=== PATIENT | female | born 1985 | race Two or more races ===

== ENCOUNTER → 2017-02-16 | Outpatient (CLI) | payer BC ==
--- NOTE | 2017-02-22 16:36 | SLEEP ---
DATE OF STUDY: 02/16/2017 ATTENDING PHYSICIAN: Lita Wheat MD The patient is 31 years old who has a BMI of 45.9. The patient underwent home sleep study to rule out ANJU. The patient's [place] score was 14. The total recording time was 490 minutes. During the night study, the patient had 2 central apneas, 25 obstructive apneas and 4 mixed apneas. The patient had 67 hypopneas. The patient's apnea hypopnea index was 12 per hour, supine index of 10.5 per hour. Review of nocturnal oximetry study revealed an average oxygen saturation 91%, with the lowest of 76%. 84 minutes were spent in oxygen saturation less than 90%. Mean heart rate was 70 beats per minute. IMPRESSION: 1. Mild sleep apnea-hypopnea syndrome with an apnea hypopnea index of 12 per hour. 2. Nocturnal hypoxia secondary to obstructive sleep apnea and suspected obesity hypoventilation syndrome. RECOMMENDATIONS: 1. The patient would benefit from treatment of sleep apnea with either oral appliance or a trial of CPAP titration. The patient is clinically symptomatic. 2. If patient undergoes CPAP titration, then she should be followed up in 4-6 weeks to assess compliance with CPAP and to document clinical improvement. 3. Weight loss is strongly advised. 4. Avoid [employer] depressants. 5. Caution regarding driving until the patient's hypersomnia is resolved with the above recommendations. MIGUELANGEL MCDOWELL MD DR: SYLVIE/sandi JOB#: [id number] / [id number] LITA Kaminski MD
== END | disposition home or self-care (01) ==
LOC: RT 05:57
PROVIDERS: ATTEND Family Medicine
DX: G47.33 Obstructive sleep apnea (adult) (pediatric) (principal)
CPT/HCPCS: G0399